=== PATIENT | female | born 1950 | race Caucasian/White ===

== ENCOUNTER → 2016-10-26 | Outpatient (CLI) | payer OTHER ==
[~2016-10-26] MED LIST: HYDR-1231 PO; ONDA-42 SL; PRM25T PO
--- NOTE | 2016-10-28 13:20 | Diagnostic Imaging Report ---
Bilateral screening mammogram 2D views with tomosynthesis The current study was also evaluated with a Computer Aided Detection (CAD) system. INDICATION: Screening. No current complaints stated on the questionnaire. COMPARISON: 10/23/2015. FINDINGS: The breasts are composed of heterogeneously dense parenchyma which may decrease mammographic sensitivity. There is a biopsy clip in the outer aspect of the left breast. There is a 6-mm circumscribed mass in the medial aspect of the right breast minimally larger compared to the prior exams and has been demonstrated to represent a simple cyst based on ultrasound of 10/10/2014. Allowing for technique and positional differences, no suspicious change is seen. IMPRESSION: No significant change. ACR BI-RADS Category 2: Benign findings. Result letter will be mailed to the patient. Note: At least 10% of breast cancer is not imaged by mammography. Dictated on workstation # [id number]
== END ==
LOC: RAD 14:19
PROVIDERS: ATTEND Family Medicine
DX: Z12.31 Encounter for screening mammogram for malignant neoplasm of breast (principal)
CPT/HCPCS: 77067

== ENCOUNTER → 2017-11-06 | Outpatient (CLI) | payer OTHER ==
--- NOTE | 2017-11-06 15:42 | Diagnostic Imaging Report ---
INDICATION: Routine screening. COMPARISON: Comparison is made with prior exams from 10/26/2016 and 10/23/2015. TECHNIQUE: 2D and 3D bilateral screening mammography was performed with computer-aided detection (CAD) system. FINDINGS: Scattered fibroglandular densities are noted bilaterally. Circumscribed density in the inner aspect of the right breast posterior depth appears stable. There are benign calcifications in the right breast. Biopsy clip in the outer portion of the left breast is again noted. No spiculated mass or malignant appearing microcalcifications are seen. The axillae are unremarkable. IMPRESSION: No mammographic features suspicious for malignancy are identified. ACR BI-RADS Category 2: Benign findings. Result letter will be mailed to the patient. Note: At least 10% of breast cancer is not imaged by mammography. Dictated by: Dictated on workstation # [id number]
== END ==
LOC: RAD 14:46
PROVIDERS: ATTEND Nurse Practitioner Family
DX: Z12.31 Encounter for screening mammogram for malignant neoplasm of breast (principal)
CPT/HCPCS: 77067

== ENCOUNTER → 2018-11-08 | Outpatient (CLI) | payer OTHER ==
--- NOTE | 2018-11-09 13:40 | Diagnostic Imaging Report ---
INDICATION: Routine screening. CORRELATION is made with prior mammograms of 11/06/2017 and 10/26/2016. TECHNIQUE: 2-D and 3-D bilateral screening mammography was performed with CAD. FINDINGS: A circumscribed density in the lower inner right breast does appear to be slightly larger on today's exam. Clip in the lateral left breast is again noted. No new mass is seen. There are benign calcifications in both breasts. The axillae are unremarkable. IMPRESSION: BI-RADS category 0. Slight increase in size of a circumscribed nodule in the lower inner right breast at mid depth. Further evaluation with ultrasound is recommended. ACR BI-RADS Category 0: Incomplete. (Needs additional imaging evaluation). Result letter will be mailed to the patient. Note: At least 10% of breast cancer is not imaged by mammography. Dictated by: Dictated on workstation # [id number]
== END ==
LOC: RAD 14:45
PROVIDERS: ATTEND Nurse Practitioner Family
DX: Z12.31 Encounter for screening mammogram for malignant neoplasm of breast (principal)
CPT/HCPCS: 77067

== ENCOUNTER → 2018-11-19 | Outpatient (CLI) | payer OTHER ==
--- NOTE | 2018-11-19 12:29 | Diagnostic Imaging Report ---
INDICATION: Right breast nodule. This study is performed for further evaluation. COMPARISON: Correlation is made with the prior right breast ultrasound from 10/29/2014 as well as a recent screening mammogram from 11/08/2018. TECHNIQUE: Sonographic interrogation of the lower inner right breast was performed. FINDINGS: There is a circumscribed cyst at the 4 o'clock location 4 cm from the nipple. This measures 6 mm x 5 mm x 6 mm compared with 5 mm x 3 mm x 4 mm on the prior exam. This does show a small amount of internal debris. No internal vascularity is present. IMPRESSION: There is a slight increase in the size of a complex cyst at the 4 o'clock location of the right breast when compared to the examination of 4 years earlier. Very little change in a 4 year time interval is reassuring for a benign etiology. The patient may return to routine annual screening mammography. ACR BI-RADS Category 2: Benign findings. Result letter will be mailed to the patient. Note: At least 10% of breast cancer is not imaged by mammography. Dictated by: Dictated on workstation # [id number]
== END ==
LOC: RAD 10:00
PROVIDERS: ATTEND Nurse Practitioner Family
DX: N60.01 Solitary cyst of right breast (principal); N63.10 Unspecified lump in the right breast, unspecified quadrant

== ENCOUNTER → 2019-11-29 | Outpatient (CLI) | payer OTHER ==
--- NOTE | 2019-12-02 09:58 | Diagnostic Imaging Report ---
INDICATION: Routine screening. COMPARISON: 11/08/2018 and 11/06/2017. TECHNIQUE: 2D and 3D bilateral screening mammography was performed with CAD. FINDINGS: Scattered fibroglandular densities are identified bilaterally. Benign calcifications are identified bilaterally. A biopsy clip in the left breast is stable. The circumscribed nodule in the medial right breast on the prior study is no longer visualized. No new mass or malignant appearing microcalcifications are seen. The axillae are unremarkable. IMPRESSION: No mammographic features suspicious for malignancy are identified. ACR BI-RADS Category 2: Benign findings. Result letter will be mailed to the patient. Note: At least 10% of breast cancer is not imaged by mammography. Dictated by: Dictated on workstation # [id number]
== END ==
LOC: RAD 15:45
PROVIDERS: ATTEND Nurse Practitioner Family
DX: Z12.31 Encounter for screening mammogram for malignant neoplasm of breast (principal)
CPT/HCPCS: 77063; 77067

== ENCOUNTER 2020-04-17 08:35 | Outpatient (CLI) | payer OTHER ==
[~2020-04-17] VITALS: Ht 170 cm; Wt 61.0 kg
[2020-04-17 08:38] VITALS: BP 144/70
[2020-04-17] MEDS ORDERED: EPINEPHrine INJECTION 1 MG/ML AMP IM PRN (08:45)
[2020-04-17] MEDS ORDERED: diphenhydrAMINE 50 MG/ML INJ (BENADRYL) IV PRN (08:45)
[2020-04-17] MEDS ORDERED: BAMLANIVIMAB 700 MG in NS 200 ML IV ONE (08:45)
[2020-04-17 09:54] VITALS: BP 144/83
== END 2020-04-17 10:53 ==
LOC: INFUSION 08:35
PROVIDERS: ATTEND Nurse Practitioner Family
DX: U07.1 COVID-19 (principal)

== ENCOUNTER → 2020-11-30 | Outpatient (CLI) | payer OTHER ==
--- NOTE | 2020-11-30 09:05 | Diagnostic Imaging Report ---
INDICATION: Routine screening. COMPARISON: 11/29/2019 and 11/08/2018. TECHNIQUE: 2D and 3D bilateral screening mammography was performed with CAD. FINDINGS: Both breasts are heterogeneously dense, limiting the sensitivity of mammography. A biopsy clip in the outer left breast is again noted. A density in the outer left breast just superior to the biopsy clip on the MLO view does appear to be slightly more prominent on today's study. Additional views are recommended. No new mass is seen. There are no malignant-appearing microcalcifications. The axillae are unremarkable. IMPRESSION: Left breast density appears more prominent. Additional views are recommended for further evaluation. ACR BI-RADS Category 0: Incomplete. (Needs additional imaging evaluation). Result letter will be mailed to the patient. Note: At least 10% of breast cancer is not imaged by mammography. Dictated by: Dictated on workstation # [id number]
== END ==
LOC: RAD 07:30
PROVIDERS: ATTEND Nurse Practitioner Family
DX: Z12.31 Encounter for screening mammogram for malignant neoplasm of breast (principal)
CPT/HCPCS: 77063; 77067

== ENCOUNTER → 2020-12-11 | Outpatient (CLI) | payer OTHER ==
--- NOTE | 2020-12-11 13:49 | Diagnostic Imaging Report ---
INDICATION: Left breast density. CORRELATION is made with diagnostic mammogram earlier the same day and screening mammogram from 11/30/2020. Sonographic interrogation of the outer left breast was performed. There is an irregular hypoechoic nodule at the 2:30 location of the left breast, 7 cm from the nipple measuring 4 mm x 6 mm x 4 mm. There is posterior acoustic shadowing present. No internal vascularity is seen. This likely accounts for the mammographic density. Fatty lymph node in the left axilla is noted. IMPRESSION: BI-RADS Category 4 Irregular subcentimeter hypoechoic nodule at the 2:30 location of the left breast, 7 cm from the nipple. This is concerning for a small breast neoplasm. Tissue sampling is recommended. This would be amenable to ultrasound-guided core biopsy. ACR BI-RADS Category 4: Suspicious abnormality. Result letter will be mailed to the patient. Note: At least 10% of breast cancer is not imaged by mammography. Dictated by: Dictated on workstation # [id number]
--- NOTE | 2020-12-11 13:50 | Diagnostic Imaging Report ---
INDICATION: Left breast density. Patient presents for additional views. CORRELATION is made with screening study from 11/30/2020. Unilateral left 2-D and 3-D diagnostic mammography was performed. This included spot compression exaggerated CC and ML views as well as conventional 90 degrees lateral views and conventional exaggerated CC views. There is a persistent somewhat irregular density in the outer aspect of the left breast approximately 7-8 cm from the nipple. This projects just cephalad and slightly lateral to a biopsy clip. No other masses are seen. IMPRESSION: BI-RADS 0 Irregular density in the outer left breast approximately 7 to 8 cm from the nipple. Further evaluation with ultrasound is recommended and will be performed today. ACR BI-RADS Category 0: Incomplete. (Needs additional imaging evaluation). Result letter will be mailed to the patient. Note: At least 10% of breast cancer is not imaged by mammography. Dictated by: Dictated on workstation # [id number]
== END ==
LOC: RAD 12:45
PROVIDERS: ATTEND Nurse Practitioner Family
DX: N63.21 Unspecified lump in the left breast, upper outer quadrant (principal)
CPT/HCPCS: 76642; 77065; G0279

== ENCOUNTER → 2020-12-23 | Outpatient (CLI) | payer OTHER ==
[~2020-12-23] VITALS: Ht 170.2 cm; Wt 59.5 kg
[~2020-12-23] MED LIST changes: +LIDOCAINE 1% INJ 20 ML 20 ML VIAL INJ ONE
--- NOTE | 2020-12-23 12:48 | Diagnostic Imaging Report ---
INDICATION: Left breast nodule, status post ultrasound-guided biopsy. Unilateral left 2-D CC and ML mammography was performed after patient underwent ultrasound-guided core biopsy. Images demonstrate a marker clip in the upper and outer aspect of the left breast posterior depth at the area of previously noted irregular density. IMPRESSION: Status post biopsy marker clip placement upper outer left breast posterior depth, as described. Dictated by: Dictated on workstation # [id number]
--- NOTE | 2020-12-23 12:57 | Diagnostic Imaging Report ---
Indication: Left breast nodule. Patient presents for ultrasound-guided biopsy. Patient brought to the ultrasound suite placed on table in the supine position. Ultrasound imaging of the left breast was performed to evaluate appropriate entry site. Left breast was then prepped and draped in usual sterile fashion. Small amount 1% lidocaine was utilized for local anesthesia. The 13-gauge hand-held vacuum-assisted mammotome device was inserted place with its biopsy chamber just deep to the irregular hypoechoic nodule at the 2:30 location of the left breast, 7 cm from the nipple. A total of 4 core biopsies were obtained. A marker clip was then deployed. Hemostasis was obtained using manual compression. Patient tolerated procedure well and was sent for post procedure mammogram satisfactory condition. IMPRESSION: Successful ultrasound-guided core biopsy of the irregular nodule at the 2:30 location of the left breast, 7 cm from the nipple utilizing the 13-gauge hand-held vacuum-assisted mammotome device. Pathology results are currently pending. Dictated by: Dictated on workstation # [id number]
== END ==
LOC: RAD 11:00
PROVIDERS: ATTEND Family Medicine
DX: N63.21 Unspecified lump in the left breast, upper outer quadrant (principal)
CPT/HCPCS: 19083; 77065; A4648; G0279

== ENCOUNTER 2021-04-06 13:50 | Outpatient (RCR) | payer OTHER, MEDICARE ==
[2021-02-09 09:29] LABS: BASOPHILS % (AUTO) 1 % (0-10); EOSINOPHILS # (AUTO) 0.1 10^3/uL (0.0-0.3); EOSINOPHILS % (AUTO) 1 % (0-10); HEMATOCRIT 41 % (35-52); HEMOGLOBIN 13.8 g/dL (11.5-16.0); LYMPHOCYTES # (AUTO) 1.8 10^3/uL (1.0-4.0); LYMPHOCYTES % (AUTO) 37 % (12-44); MEAN CORPUSCULAR HEMOGLOBIN 33 pg (25-34); MEAN CORPUSCULAR HGB CONC 34 g/dL (32-36); MEAN CORPUSCULAR VOLUME 96 fL (80-99); MEAN PLATELET VOLUME 9.8 fL (9.0-12.2); MONOCYTES # (AUTO) 0.4 10^3/uL (0.0-1.0); MONOCYTES % (AUTO) 8 % (0-12); NEUTROPHILS # (AUTO) 2.6 10^3/uL (1.8-7.8); NEUTROPHILS % (AUTO) 53 % (42-75); PLATELET COUNT 277 10^3/uL (130-400)
[2021-02-09 09:55] LABS: ALBUMIN 3.9 GM/DL (3.2-4.5); BILIRUBIN,TOTAL 0.7 MG/DL (0.1-1.0); CALCIUM 9.5 MG/DL (8.5-10.1); CREATININE SERUM 0.7 MG/DL (0.60-1.30); POTASSIUM 4.1 MMOL/L (3.6-5.0); TOTAL PROTEIN 6.4 GM/DL (6.4-8.2)
[2021-03-19 12:49] LABS: BASOPHILS % (AUTO) 1 % (0-10); EOSINOPHILS # (AUTO) 0.1 10^3/uL (0.0-0.3); EOSINOPHILS % (AUTO) 2 % (0-10); HEMATOCRIT 41 % (35-52); HEMOGLOBIN 13.2 g/dL (11.5-16.0); LYMPHOCYTES # (AUTO) 1.7 10^3/uL (1.0-4.0); LYMPHOCYTES % (AUTO) 26 % (12-44); MEAN CORPUSCULAR HEMOGLOBIN 32 pg (25-34); MEAN CORPUSCULAR HGB CONC 33 g/dL (32-36); MEAN CORPUSCULAR VOLUME 98 fL (80-99); MEAN PLATELET VOLUME 9.8 fL (9.0-12.2); MONOCYTES # (AUTO) 0.5 10^3/uL (0.0-1.0); MONOCYTES % (AUTO) 8 % (0-12); NEUTROPHILS # (AUTO) 4.2 10^3/uL (1.8-7.8); NEUTROPHILS % (AUTO) 64 % (42-75); PLATELET COUNT 294 10^3/uL (130-400); WHITE BLOOD COUNT 6.6 10^3/uL (4.3-11.0)
[2021-03-19 13:09] LABS: ALBUMIN 3.8 GM/DL (3.2-4.5); BILIRUBIN,TOTAL 0.3 MG/DL (0.1-1.0); CALCIUM 9.6 MG/DL (8.5-10.1); CREATININE SERUM 0.73 MG/DL (0.60-1.30); POTASSIUM 4.2 MMOL/L (3.6-5.0); TOTAL PROTEIN 6.4 GM/DL (6.4-8.2)
== END 2021-04-09 | disposition home or self-care (01) ==
LOC: ONC 13:50
PROVIDERS: ATTEND Internal Medicine Hematology & Oncology
DX: Z51.0 Encounter for antineoplastic radiation therapy (principal); C50.412 Malignant neoplasm of upper-outer quadrant of left female breast; R74.01 Elevation of levels of liver transaminase levels; Z90.12 Acquired absence of left breast and nipple
CPT/HCPCS: 80053; 85025; G0463; 77280; 77290; 77295; 77300; 77307; 77334; 77336; 77417; 99204; 99213; 99214

== ENCOUNTER → 2021-04-06 | Outpatient (CLI) | payer OTHER, MEDICARE ==
[~2021-04-06] MED LIST changes: -LIDOCAINE 1% INJ 20 ML 20 ML VIAL INJ ONE
--- NOTE | 2021-04-06 10:04 | Diagnostic Imaging Report ---
INDICATION: Breast cancer. COMPARISON: 04/17/2001. FINDINGS: AP Spine L1-L4: [BMD (g/cm2): 1.223] [T-Score: 0.2] [Z-Score: 2.1] [BMD Previous: 1.271] [BMD % Change: -3.8] LT Hip Neck: [BMD (g/cm2): 0.816] [T-Score: -1.6] [Z-Score: 0.3] LT Hip Total: [BMD (g/cm2):0.909] [T-Score:-0.8] [Z-Score: 0.9] [BMD Previous: 1.016] [BMD % Change: -10.5] RT Hip Neck: [BMD (g/cm2):0.880] [T-Score:-1.1] [Z-Score:0.8] RT Hip Total: [BMD (g/cm2):0.946] [T-score:-0.5] [Z-Score:1.2] [BMD Previous:1.032] [BMD % Change:-8.3] World Health Organization criteria for BMD interpretation classify patients as Normal (T-score at or above -1.0), Osteopenic (T-score between -1.0 and -2.5) or Osteoporotic (T-score at or below -2.5). LIMITATIONS AND MODIFICATION: None. FRACTURE RISK (FRAX SCORE): The ten year probability of (%): Major Osteoporotic Fracture: [NA] Hip Fracture: [NA] IMPRESSION: 1. Osteopenia (Low bone mass). 2. Bone mineral density has decreased as detailed above. 3. See below National Osteoporosis Foundation guidelines on when to potentially initiate pharmacologic therapy. Based on the National Osteoporosis Foundation Guidelines, pharmacologic treatment should be initiated in any of the following, unless clinical conditions suggest otherwise: * Any patient with prior fragility fracture of the hip or vertebrae. A spine fracture indicates 5X risk for subsequent spine fracture and 2X risk for subsequent hip fracture. * Osteoporosis (T-score <-2.5). * Postmenopausal women and men age 50 and older with low bone mass/osteopenia (T-score between -1.0 and -2.5) by DXA and 10-year major osteoporotic fracture greater than 20% or a 10-year probability of hip fracture greater than 3%. These fracture risks are supplied above in the FRAX score, if applicable. * Clinician judgement and/or patient preferences may indicate treatment for people with 10-year fracture probabilities above or below these levels. Dictated by: Dictated on workstation # [id number]
== END ==
LOC: RAD 08:30
PROVIDERS: ATTEND Nurse Practitioner Adult Health
DX: C50.912 Malignant neoplasm of unspecified site of left female breast (principal); M85.80 Other specified disorders of bone density and structure, unspecified site
CPT/HCPCS: 77080

== ENCOUNTER → 2021-05-17 | Outpatient (CLI) | payer OTHER, MEDICARE | LOC: EDSTATUS 04-10 08:49 → ONC 08:50 | PROVIDERS: ATTEND Internal Medicine Hematology & Oncology | DX: C50.412 Malignant neoplasm of upper-outer quadrant of left female breast (principal); Z78.0 Asymptomatic menopausal state ==

== ENCOUNTER 2021-07-28 14:21 | Emergency (ER) | payer OTHER, MEDICARE ==
[~2021-07-28] VITALS: Ht 170 cm; Wt 60.0 kg
[2021-07-28 14:40] LABS: BASOPHILS % (AUTO) 0 % (0-10); EOSINOPHILS % (AUTO) 0 % (0-10); HEMATOCRIT 40 % (35-52); HEMOGLOBIN 13.3 g/dL (11.5-16.0); LYMPHOCYTES % (AUTO) 9 % (12-44); MEAN CORPUSCULAR HEMOGLOBIN 32 pg (25-34); MEAN CORPUSCULAR HGB CONC 33 g/dL (32-36); MEAN CORPUSCULAR VOLUME 97 fL (80-99); MEAN PLATELET VOLUME 9.9 fL (9.0-12.2); MONOCYTES # (AUTO) 0.6 10^3/uL (0.0-1.0); MONOCYTES % (AUTO) 6 % (0-12); NEUTROPHILS % (AUTO) 84 % (42-75); PLATELET COUNT 273 10^3/uL (130-400); WHITE BLOOD COUNT 10.6 10^3/uL (4.3-11.0)
--- NOTE | 2021-07-28 14:40 | ED Fall/Injury ---
General Chief Complaint: Trauma-Non Activation Stated Complaint: HIT HEAD,NECK PAIN, FELL OFF HORSE Source: patient Exam Limitations: no limitations History of Present Illness Date Seen by Provider: Jul 28, 2021 Time Seen by Provider: 14:36 Initial Comments to ER with complaints of headache, left-sided neck pain, nausea without vomiti ng. This occurred about 3 hours ago when she fell off of her horse. She denies loss of consciousness. Denies pain in her extremities or low back. Pain is worsened in the left side of her neck with any movement of the neck. She denies any numbness tingling or weakness in any of her extremities. She was able to drive herself here and ambulatory into room to without assistance. She does not take any anticoagulant or antiplatelet medications. She rates the pain in the left side of the neck and head at 8 out of 10. She does take vitamin D supplement Occurred: this morning Severity: moderate, severe Injuries/Pain Location: head, neck Context: other (Fell off horse) Loss of Consciousness: no loss of consciousness Associated Symptoms (Fall): Headache, Nausea/Vomiting, Neck Pain Allergies and Home Medications Allergies Coded Allergies: No Known Drug Allergies (Unverified , 08/24/12) Patient Home Medication List Home Medication List Reviewed: Yes Hydrocodone Bit/Acetaminophen (Hydrocodone-Apap 5-325 Tablet) 1 Tab Tablet, 1-2 TAB PO Q4H PRN for PAIN Prescribed by: VERNA LLAMAS on 06/02/131904 Ondansetron Hcl (Zofran Oral Dissolve) 4 Mg Tab, 8 MG SL Q6H PRN for NAUSEA/VOMITING Prescribed by: VERNA LLAMAS on 06/02/131905 Promethazine Hcl (Phenergan Tab) 25 Mg Tab, 0.5-1 TAB PO QID PRN for NAUSEA/VOMITING Prescribed by: VERNA LLAMAS on 06/02/131905 Review of Systems Review of Systems Constitutional: see HPI Eyes: No Symptoms Reported Ears, Nose, Mouth, Throat: no symptoms reported Respiratory: no symptoms reported Cardiovascular: no symptoms reported Genitourinary: no symptoms reported Musculoskeletal: no symptoms reported Skin: no symptoms reported Psychiatric/Neurological: No Symptoms Reported Physical Exam Vital Signs Vital Signs - First Documented 07/28/21 14:26 Temp 35.6 Pulse 63 Resp 16 B/P (MAP) 150/85 (106) Capillary Refill : Height, Weight, BMI Height: 5'7" Weight: 136lbs. oz. 61.309870lw; 20.53 BMI Method: General Appearance: WD/WN, no apparent distress, other (GCS 15 alert and oriented very pleasant no distress ambulatory to room to without assistance. A rigid cervical collar was applied upon arrival. Left side of her neck is tender to palpation without deformity or swelling. There is no mar sign or hemotympanum. There is no scalp laceration or abrasion.) HEENT: PERRL/EOMI, normal ENT inspection, TMs normal Neck: limited range of motion, tender lateral, tender midline Cardiovascular: regular rate, rhythm, no murmur Respiratory: no respiratory distress, no accessory muscle use Gastrointestinal: normal bowel sounds, non tender, soft Extremities: normal range of motion, non-tender Neurologic/Psychiatric: alert, normal mood/affect, oriented x 3 Skin: normal color, warm/dry Progress/Results/Core Measures Results/Orders Lab Results Laboratory Tests Test 07/28/21 14:30 Range/Units White Blood Count 10.6 4.3-11.0 10^3/uL Red Blood Count 4.13 3.80-5.11 10^6/uL Hemoglobin 13.3 11.5-16.0 g/dL Hematocrit 40 35-52 % Mean Corpuscular Volume 97 80-99 fL Mean Corpuscular Hemoglobin 32 25-34 pg Mean Corpuscular Hemoglobin Concent 33 32-36 g/dL Red Cell Distribution Width 12.4 10.0-14.5 % Platelet Count 273 130-400 10^3/uL Mean Platelet Volume 9.9 9.0-12.2 fL Immature Granulocyte % (Auto) 1 % Neutrophils (%) (Auto) 84 H 42-75 % Lymphocytes (%) (Auto) 9 L 12-44 % Monocytes (%) (Auto) 6 0-12 % Eosinophils (%) (Auto) 0 0-10 % Basophils (%) (Auto) 0 0-10 % Neutrophils # (Auto) 9.0 H 1.8-7.8 10^3/uL Lymphocytes # (Auto) 1.0 1.0-4.0 10^3/uL Monocytes # (Auto) 0.6 0.0-1.0 10^3/uL Eosinophils # (Auto) 0.0 0.0-0.3 10^3/uL Basophils # (Auto) 0.0 0.0-0.1 10^3/uL Immature Granulocyte # (Auto) 0.1 0.0-0.1 10^3/uL Prothrombin Time 12.9 12.2-14.7 SEC INR Comment 0.9 0.8-1.4 Activated Partial Thromboplast Time 25 24-35 SEC Sodium Level 137 135-145 MMOL/L Potassium Level 3.8 3.6-5.0 MMOL/L Chloride Level 103 98-107 MMOL/L Carbon Dioxide Level 19 L 21-32 MMOL/L Anion Gap 15 H 5-14 MMOL/L Blood Urea Nitrogen 20 H 7-18 MG/DL Creatinine 0.82 0.60-1.30 MG/DL Estimat Glomerular Filtration Rate 76 BUN/Creatinine Ratio 24 Glucose Level 117 H 70-105 MG/DL Calcium Level 9.9 8.5-10.1 MG/DL Corrected Calcium 9.8 8.5-10.1 MG/DL Total Bilirubin 0.6 0.1-1.0 MG/DL Aspartate Amino Transf (AST/SGOT) 25 5-34 U/L Alanine Aminotransferase (ALT/SGPT) 28 0-55 U/L Alkaline Phosphatase 45 40-136 U/L Total Protein 6.4 6.4-8.2 GM/DL Albumin 4.1 3.2-4.5 GM/DL My Orders Orders - ELIANA BALDERRAMA APRN Ct Head/Cervical Spine Wo (07/28/21 14:32) Ct Thoracic Spine Wo (07/28/21 14:32) Chest 1 View, Ap/Pa Only (07/28/21 14:32) Cbc With Automated Diff (07/28/21 14:32) Comprehensive Metabolic Panel (07/28/21 14:32) Protime With Inr (07/28/21 14:32) Partial Thromboplastin Time (07/28/21 14:32) Fentanyl Inj (Sublimaze Injection) (07/28/21 14:45) Ondansetron Injection (Zofran Injectio (07/28/21 14:45) Fentanyl Inj (Sublimaze Injection) (07/28/21 15:30) Ct Angio Head/Neck (07/28/21 15:29) Iohexol Injection (Omnipaque 350 Mg/Ml 1 (07/28/21 16:00) Received Contrast (Hold Metformin- Contr (07/28/21 16:00) Ns (Ivpb) (Sodium Chloride 0.9% Ivpb Bag (07/28/21 16:00) Ns Iv 1000 Ml (Sodium Chloride 0.9%) (07/28/21 16:15) Promethazine Injection (Phenergan Injec (07/28/21 16:15) Fentanyl Inj (Sublimaze Injection) (07/28/21 16:30) Fentanyl Inj (Sublimaze Injection) (07/28/21 17:30) Medications Given in ED Current Medications Medications Dose Ordered Sig/Sarai Route Start Time Stop Time Status Last Admin Dose Admin Fentanyl Citrate 50 mcg ONCE ONCE IVP 07/28/21 14:45 07/28/21 14:46 DC 07/28/21 14:55 50 MCG Fentanyl Citrate 50 mcg ONCE ONCE IVP 07/28/21 15:30 07/28/21 15:31 DC 07/28/21 15:31 50 MCG Fentanyl Citrate 50 mcg ONCE ONCE IVP 07/28/21 16:30 07/28/21 16:31 DC 07/28/21 16:25 50 MCG Iohexol 100 ml ONCE ONCE IV 07/28/21 16:00 07/28/21 16:01 DC 07/28/21 16:06 75 ML Ondansetron HCl 8 mg ONCE ONCE IVP 07/28/21 14:45 07/28/21 14:46 DC 07/28/21 14:55 8 MG Promethazine HCl 12.5 mg ONCE ONCE IVP 07/28/21 16:15 07/28/21 16:16 DC 07/28/21 16:12 12.5 MG Sodium Chloride 100 ml ONCE ONCE IV 07/28/21 16:00 07/28/21 16:01 DC 07/28/21 16:06 80 ML Vital Signs/I&O 07/28/21 14:26 Temp 35.6 Pulse 63 Resp 16 B/P (MAP) 150/85 (106) Departure Communication (Admissions) NAME: ONIEL BARRERA [facility] REC#: [id number] PT STATUS: REG ER : 1950 PHYSICIAN: ELIANA BALDERRAMA [employer] ADMIT DATE: 07/28/21/ER Draft Date of Exam:07/28/21 CT THORACIC SPINE WO PROCEDURE: CT thoracic spine without contrast. TECHNIQUE: Multiple axial computerized tomography images were obtained from the base of the thoracic spine to the vertex without intravenous contrast. Auto Exposure Controls were utilized during the CT exam to meet ALARA standards for radiation dose reduction. INDICATION: Fell off of a horse. FINDINGS: Curvature and alignment of the thoracic spine is normal. There appears to be an old left first rib fracture. Vertebral body heights are maintained. No acute compression fracture is seen. There is generalized thoracic spondylosis with variable disc space narrowing and marginal spurring. Paraspinous tissues are unremarkable. IMPRESSION: Thoracic spondylosis. No acute bony abnormality is detected. Dictated on workstation # [id number] Dict: 07/28/21 1511 Trans: 07/28/21 1524 [id number] Interpreted by: ARTIE GARCIA MD Electronically signed by: NAME: ONIEL BARRERA [facility] REC#: [id number] PT STATUS: REG ER : 1950 PHYSICIAN: ELIANA BALDERRAMA APRN ADMIT DATE: 07/28/21/ER Draft Date of Exam:07/28/21 CT HEAD/CERVICAL SPINE WO PROCEDURE: CT head and CT cervical spine without contrast. TECHNIQUE: Multiple contiguous axial images were obtained through the brain and cervical spine without the use of intravenous contrast. Sagittal and coronal reformations through the cervical spine were then performed. Auto Exposure Controls were utilized during the CT exam to meet ALARA standards for radiation dose reduction. INDICATION: Fall from horse, pain. COMPARISON: None available. FINDINGS: Mild atrophy. No intracranial hemorrhage. No intracranial mass, mass effect, midline shift, herniation, hydrocephalus, or extra-axial fluid collection. Minimal periventricular and subcortical white matter hypodensities are present though nonspecific. This most likely relates to minimal background chronic small vessel white matter ischemic disease. No definite CT evidence of an acute ischemic infarction. The left ocular lens is absent. The orbits are otherwise unremarkable. The paranasal sinuses are clear. The calvarium is intact. Alignment of the cervical spine is well maintained without significant anterolisthesis or retrolisthesis. 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 This is resulting in the left lateral mass being laterally displaced. Besides mild scattered endplate degenerative changes, vertebral body heights are well-maintained. Chronic appearing left 1st rib fracture. No additional acute fracture or dislocation. Moderate disc space height loss at C6/C7 with mild disc space height loss at C5/C6. Multilevel facet joint degenerative changes and uncovertebral joint hypertrophy. Prominent facet joint degenerative changes are identified on the left. Mild central canal stenosis at C6/C7 and C5/C6 with multilevel neuroforaminal stenosis present including severe bilateral neuroforaminal stenosis at C5/C6. No apical pneumothorax. IMPRESSION: Acute fracturing of the left aspect of the anterior arch of C1 with resulting lateral displacement of the lateral mass, acute Deven's fracture. Given location of fracture, CTA of the neck is recommended to help evaluate the vertebral vasculature. No acute intracranial abnormality with mild atrophy and minimal background chronic small vessel white matter ischemic disease. Moderate multilevel degenerative changes with resulting significant central canal and neuroforaminal stenosis. Findings were discussed with Eliana Balderrama at 1508 hours on 07/28/2021. CRITICAL FINDING Dictated on workstation # [id number] Dict: 07/28/21 1457 Trans: 07/28/21 1526 [id number] Interpreted by: KANDICE CLARK MD Electronically signed by: [id number] spoke with Dr. Rouse from neurosurgery at [facility]. He will review the images and call me back. 1550-Dr. Rouse has called back, concerned about a transverse ligament injury. He would like to have her transferred to [facility]. I then spoke with [facility] who has accepted the patient for transfer, trauma surgeon Dr. Joy. CT angio head and neck pending to evaluate the vertebral arteries. At this time her pain is controlled her blood pressure is 150/74, heart rate is in the 80s she is alert and oriented GCS 15 still without weakness or paresthesia in her extremities. She remains in a rigid cervical collar. 1607-back from CT angio. Awaiting bed assignment from [facility]. Reports increasing nausea. 1 L of normal saline and 12 and 5 mg of Phenergan IV to be infused. Impression Primary Impression: Deven fracture Disposition: 02 XFER SHT-TRM HOSP Condition: Stable Transfer Transfer Reason: Exceeds level of care Time Spoke to Accepting Phy: 15:52 Departure-Patient Inst. Referrals: KAYLI MUNGUIA MD (PCP/Family) Primary Care Physician Copy Copies To 1: KAYLI MUNGUIA MD, PETER J [employer] Jul 28, 2021 14:40
[2021-07-28] MEDS ORDERED: ONDANSETRON 4 MG/2 ML (SDV) Z0FRAN IVP ONE (14:45)
[2021-07-28] MEDS ORDERED: fentaNYL INJ 100 MCG/2 ML AMP IVP ONE ×4 (14:45→17:30)
[2021-07-28 14:51] LABS: ALBUMIN 4.1 GM/DL (3.2-4.5); INR 0.9 (0.8-1.4); POTASSIUM 3.8 MMOL/L (3.6-5.0); PROTHROMBIN TIME PATIENT 12.9 SEC (12.2-14.7)
[2021-07-28 14:52] LABS: CALCIUM 9.9 MG/DL (8.5-10.1)
[2021-07-28 14:53] LABS: TOTAL PROTEIN 6.4 GM/DL (6.4-8.2)
[2021-07-28 14:55] LABS: BILIRUBIN,TOTAL 0.6 MG/DL (0.1-1.0)
[2021-07-28 14:57] LABS: CREATININE SERUM 0.82 MG/DL (0.60-1.30)
--- NOTE | 2021-07-28 15:22 | Diagnostic Imaging Report ---
INDICATION: Fall from horse. COMPARISON: None available. TECHNIQUE: Single frontal radiograph of the chest dated July 28, 2021. FINDINGS: The cardiac silhouette is mildly enlarged. No significant pulmonary vascular congestion. Surgical clips are seen overlying the left axillary region. Senescent changes of the lungs without focal pulmonary opacity. No significant pleural effusion. No pneumothorax. No acute osseous abnormality. IMPRESSION: Senescent changes of the lungs without acute cardiopulmonary abnormality. Dictated by: Dictated on workstation # [id number]
--- NOTE | 2021-07-28 15:25 | Diagnostic Imaging Report ---
PROCEDURE: CT thoracic spine without contrast. TECHNIQUE: Multiple axial computerized tomography images were obtained from the base of the thoracic spine to the vertex without intravenous contrast. Auto Exposure Controls were utilized during the CT exam to meet ALARA standards for radiation dose reduction. INDICATION: Fell off of a horse. FINDINGS: Curvature and alignment of the thoracic spine is normal. There appears to be an old left first rib fracture. Vertebral body heights are maintained. No acute compression fracture is seen. There is generalized thoracic spondylosis with variable disc space narrowing and marginal spurring. Paraspinous tissues are unremarkable. IMPRESSION: Thoracic spondylosis. No acute bony abnormality is detected. Dictated by: Dictated on workstation # [id number]
--- NOTE | 2021-07-28 15:26 | Diagnostic Imaging Report ---
PROCEDURE: CT head and CT cervical spine without contrast. TECHNIQUE: Multiple contiguous axial images were obtained through the brain and cervical spine without the use of intravenous contrast. Sagittal and coronal reformations through the cervical spine were then performed. Auto Exposure Controls were utilized during the CT exam to meet ALARA standards for radiation dose reduction. INDICATION: Fall from horse, pain. COMPARISON: None available. FINDINGS: Mild atrophy. No intracranial hemorrhage. No intracranial mass, mass effect, midline shift, herniation, hydrocephalus, or extra-axial fluid collection. Minimal periventricular and subcortical white matter hypodensities are present though nonspecific. This most likely relates to minimal background chronic small vessel white matter ischemic disease. No definite CT evidence of an acute ischemic infarction. The left ocular lens is absent. The orbits are otherwise unremarkable. The paranasal sinuses are clear. The calvarium is intact. Alignment of the cervical spine is well maintained without significant anterolisthesis or retrolisthesis. 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 This is resulting in the left lateral mass being laterally displaced. Besides mild scattered endplate degenerative changes, vertebral body heights are well-maintained. Chronic appearing left 1st rib fracture. No additional acute fracture or dislocation. Moderate disc space height loss at C6/C7 with mild disc space height loss at C5/C6. Multilevel facet joint degenerative changes and uncovertebral joint hypertrophy. Prominent facet joint degenerative changes are identified on the left. Mild central canal stenosis at C6/C7 and C5/C6 with multilevel neuroforaminal stenosis present including severe bilateral neuroforaminal stenosis at C5/C6. No apical pneumothorax. IMPRESSION: Acute fracturing of the left aspect of the anterior arch of C1 with resulting lateral displacement of the lateral mass, acute Deven's fracture. Given location of fracture, CTA of the neck is recommended to help evaluate the vertebral vasculature. No acute intracranial abnormality with mild atrophy and minimal background chronic small vessel white matter ischemic disease. Moderate multilevel degenerative changes with resulting significant central canal and neuroforaminal stenosis. Findings were discussed with Shiv Balderrama at 1508 hours on 07/28/2021. CRITICAL FINDING Dictated by: Dictated on workstation # [id number]
[2021-07-28] MEDS ORDERED: NS 100 ML (IVPB) BAG IV ONE (16:00)
[2021-07-28] MEDS ORDERED: IOHEXOL 350 MG/ML 100 ML (OMNIPAQUE 350) VIAL IV ONE (16:00)
[2021-07-28] MEDS ORDERED: HOLD METFORMIN - RECEIVED CONTRAST 20 ML VIAL IV SCH (16:00)
[2021-07-28] MEDS ORDERED: PROMETHAZINE INJ 25 MG/ML (PHENERGAN) AMP IVP ONE (16:15)
[2021-07-28] MEDS ORDERED: NS IV 1000 ML 1,000 ML IV SCH (16:15)
--- NOTE | 2021-07-28 16:41 | Diagnostic Imaging Report ---
Clinical Indication: Patient with left neck closed fractures. Exams: 1: Head CT with IV contrast. Auto Exposure Controls were utilized during the CT exam to meet ALARA standards for radiation dose reduction. 2: CT angiogram of the head and neck performed with 100 cc of Omnipaque 350 IV contrast. Sagittal and coronal MIP reformations were created for better visualization of vascular anatomy. Comparison: None. Findings: Head CT: There is no evidence of acute cerebral infarct, intracranial hemorrhage, or gross mass effect. There is no abnormal IV contrast enhancement. The brain parenchymal volume appears appropriate for patient's age. Subtle patchy low-density involving the white matter of both cerebral hemispheres, likely related to mild chronic small vessel ischemic disease. There is normal nixon-white matter distinction. There is no significant midline shift or herniation. There is no evidence of hydrocephalus. The basal cisterns are unremarkable. The skull, extracranial soft tissue, and orbits are unremarkable. The paranasal sinuses are unremarkable. Temporal bones show no significant abnormality. CT angiogram: There is dense contrast bolus within the right subclavian artery and superior vena cava which causes streak artifact obscuring some portions of the aortic arch and proximal great vessels. Three-vessel aortic arch is seen. Bilateral subclavian artery and brachiocephalic arteries are patent. There is dental streak artifact obscuring the neck and vascular structures at the C3 level. The bilateral common carotid arteries, bilateral cervical ICA, and bilateral ECA are unremarkable. The petrous, cavernous and supraclinoid ICA are unremarkable. The bilateral ACAs and distal branches are patent. The bilateral MCAs and distal branches are patent. The bilateral cervical vertebral arteries are patent. The left PICA and right AICA are patent. The intradural bilateral vertebral arteries, basilar artery, bilateral superior cerebellar arteries, bilateral [employer] and distal branches are patent. Dural venous sinuses are patent. Again seen is a fracture involving the left anterior arch of the C1 vertebra which does not extend through the foramen transversalis. Stable widening of the fracture of roughly 3 mm. 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 Cervical spine vertebral body spurs and facet arthropathy are seen. There is no significant neck soft tissue abnormality. IMPRESSION: 1: Again seen is a slightly distracted fracture of the left anterior arch of the C1 vertebra. 2: CT angiogram of the [place] and neck shows no significant stenosis, vascular malformation, aneurysm, or dissection. There is no evidence of vascular injury. 3: Head CT is unremarkable for patient's age. Dictated by: Dictated on workstation # [id number]
[2021-07-28 17:25] VITALS: BP 146/60
== END 2021-07-28 17:27 | disposition short-term general hospital (02) ==
LOC: EDUNIT# 14:21 → ER 14:23
DX: S12.090A Other displaced fracture of first cervical vertebra, initial encounter for closed fracture (principal); V80.010A Animal-rider injured by fall from or being thrown from horse in noncollision accident, initial encounter
CPT/HCPCS: 36415; 70450; 70496; 70498; 71045; 72125; 72128; 80053; 85025; 85610; 85730; 99291

== ENCOUNTER → 2021-09-09 | Outpatient (CLI) | payer OTHER, MEDICARE ==
--- NOTE | 2021-09-09 13:41 | Diagnostic Imaging Report ---
Indication: Left breast carcinoma. Study is performed for follow-up. Unilateral left 2-D and 3-D diagnostic mammography was performed. Correlation is made with prior mammograms from 11/30/2020, 11/29/2019 and 11/08/2018. Post lumpectomy changes in the outer left breast are noted. No residual or recurrent mass is identified. No malignant-appearing microcalcifications are seen. Left axilla contains multiple surgical clips. IMPRESSION: BI-RADS Category 2 Postlumpectomy changes left breast without evidence of residual or recurrent neoplasm. Continued follow-up is recommended. ACR BI-RADS Category 2: Benign findings. Result letter will be mailed to the patient. Note: At least 10% of breast cancer is not imaged by mammography. Dictated by: Dictated on workstation # [id number]
== END ==
LOC: RAD 13:15
PROVIDERS: ATTEND Internal Medicine Hematology & Oncology
DX: C50.912 Malignant neoplasm of unspecified site of left female breast (principal); M85.80 Other specified disorders of bone density and structure, unspecified site; Z79.811 Long term (current) use of aromatase inhibitors; Z90.12 Acquired absence of left breast and nipple
CPT/HCPCS: 77065; G0279

== ENCOUNTER → 2021-09-14 | Outpatient (CLI) | payer OTHER, MEDICARE ==
--- NOTE | 2021-09-14 15:29 | Diagnostic Imaging Report ---
PROCEDURE: CT cervical spine without contrast. TECHNIQUE: Multiple contiguous axial images were obtained through the cervical spine without the use of intravenous contrast. Sagittal and coronal reformations were then performed. Auto Exposure Controls were utilized during the CT exam to meet ALARA standards for radiation dose reduction. INDICATION: Closed Deven fracture. COMPARISON: CTA head and neck 07/28/2021. FINDINGS: Again seen is the distracted fracture of the left anterior arch of C1 with approximately 6 mm of distraction. No bony bridging is yet seen. 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 No new cervical spine fractures are identified. Normal alignment of the remaining cervical spine. Vertebral body heights are preserved. Moderate degenerative endplate changes at C5-C7. No high-grade spinal canal stenosis is evident by noncontrast CT. Uncovertebral joint hypertrophy and facet arthropathy result in moderate to severe bilateral neural foraminal narrowing at C5-C6 and C6-C7. No acute findings in the visualized paravertebral soft tissues. The lung apices are clear. IMPRESSION: 1. Stable appearing distracted fracture of the left anterior arch of C1 of approximately 6 mm. No bony bridging is yet identified. 2. Spondylotic changes result in high-grade bilateral neural foraminal narrowing at C5-C6 and C6-C7. Report faxed to [phone] at 3:28 PM 09/14/2021/cb Dictated by: Dictated on workstation # [id number]
== END ==
LOC: RAD 13:11
PROVIDERS: ATTEND Neurological Surgery
DX: S12.01XD Stable burst fracture of first cervical vertebra, subsequent encounter for fracture with routine healing (principal); M47.812 Spondylosis without myelopathy or radiculopathy, cervical region; M48.02 Spinal stenosis, cervical region
CPT/HCPCS: 72125

== ENCOUNTER → 2021-10-27 | Outpatient (CLI) | payer OTHER, MEDICARE ==
--- NOTE | 2021-10-27 14:54 | Diagnostic Imaging Report ---
PROCEDURE: CT cervical spine without contrast. TECHNIQUE: Multiple contiguous axial images were obtained through the cervical spine without the use of intravenous contrast. Sagittal and coronal reformations were then performed. Auto Exposure Controls were utilized during the CT exam to meet ALARA standards for radiation dose reduction. INDICATION: Followup C1 fracture. Fall off a horse in June 2021. COMPARISON: 09/14/2021. FINDINGS: Chronic fracture involving the anterior arch of C1 on the left is again visualized with approximately 0.3 cm of distraction, previously measuring 0.6 cm. No osseous bridging is seen across this fracture. There is congenital nonunion of the posterior arch of C1. No evidence of acute fracture in the cervical spine. The craniocervical junction demonstrates normal alignment. No malalignment is seen in the cervical spine. No evidence of acute spinal canal stenosis. No high density material is seen within the spinal canal. The soft tissues of the neck are unremarkable. The included lung apices are clear. IMPRESSION: 1. Decreased distraction of the fracture involving the anterior arch of C1 on the left. However, no osseus bridging is seen across the fracture. Recommend continued followup as indicated. 2. No acute fracture is seen in the cervical spine. No evidence of malalignment. Dictated by: Dictated on workstation # [id number]
== END ==
LOC: RAD 12:15
PROVIDERS: ATTEND Neurological Surgery
DX: S12.01XD Stable burst fracture of first cervical vertebra, subsequent encounter for fracture with routine healing (principal)
CPT/HCPCS: 72125

== ENCOUNTER → 2022-03-18 | Outpatient (CLI) | payer OTHER, MEDICARE ==
--- NOTE | 2022-03-18 13:35 | Diagnostic Imaging Report ---
Indication: Left breast carcinoma. Patient presents for a six-month follow-up. Correlation is made with prior mammogram from 09/09/2021. 2-D and 3-D bilateral diagnostic mammography was performed with CAD. Post-therapeutic changes upper outer left breast remain stable. No new mass is detected. No malignant-appearing microcalcifications are seen. There are benign calcifications present. There are surgical clips left axilla. IMPRESSION: BI-RADS Category 2 Stable bilateral mammograms with no mammographic features suspicious for malignancy. ACR BI-RADS Category 2: Benign findings. Result letter will be mailed to the patient. Note: At least 10% of breast cancer is not imaged by mammography. Dictated by: Dictated on workstation # [id number]
== END ==
LOC: RAD 12:18
PROVIDERS: ATTEND Nurse Practitioner
DX: M85.80 Other specified disorders of bone density and structure, unspecified site (principal); Z79.811 Long term (current) use of aromatase inhibitors; Z85.3 Personal history of malignant neoplasm of breast
CPT/HCPCS: 77066; G0279; 77062

== ENCOUNTER 2023-01-06 09:20 | Day surgery (SDC) | payer MEDICARE, OTHER ==
--- NOTE | 2022-12-27 09:56 | HISTORY AND PHYSICAL ---
DATE OF SERVICE: 01/06/2023 COLONOSCOPY HISTORY AND PHYSICAL HISTORY OF PRESENT ILLNESS: The patient is a 72-year-old white female referred by Dr. Varghese for screening colonoscopy. I last performed colonoscopy on her 10 years ago, at which time she had diminutive tubular adenoma removed from the hepatic flexure and mild diverticular disease confined to the sigmoid colon with no other abnormalities. She denies any change in bowel habit. Denies abdominal pain, bright red blood per rectum or melena. PAST MEDICAL HISTORY: Significant for diagnosis of breast cancer, she reports low risk for recurrence that she underwent lumpectomy for, was at least estrogen positive and she is on antiestrogen therapy. She has a history of osteoporosis for which she takes calcium, vitamin D and Fosamax weekly with no other health problems being noted. FAMILY HISTORY: She is not aware of any family history for colon cancer or polyps. Father of complications of COPD at the age of 88. Mother of complications of diabetes and coronary artery disease at the age of 80. PAST SURGICAL HISTORY: She had lumpectomy of the breast about 18 months ago. She does report that she had a C1 fracture in a fall from a horse but it was managed conservatively with no neurological sequela. REVIEW OF SYSTEMS: CONSTITUTIONAL: Denies night sweats, chills, fever or change in weight. PULMONARY: Denies cough, wheezing or shortness of breath. CARDIOVASCULAR: Denies chest discomfort, dyspnea on exertion, orthopnea, PND or pedal edema. GASTROINTESTINAL: As noted in the HPI. PHYSICAL EXAMINATION: GENERAL: Reveals a pleasant white female, alert, articulate in no acute distress. VITAL SIGNS: Weight 134 pounds and blood pressure 104/60. HEENT: Unremarkable. Sclerae nonicteric. CHEST: Clear. CARDIOVASCULAR: Reveals regular rate and rhythm without murmur, S3, or S4. ABDOMEN: Soft and supple without mass, organomegaly, or tenderness. EXTREMITIES: Reveal no cyanosis, clubbing or edema. ASSESSMENT AND PLAN: The patient is being set up for screening colonoscopy. Prep instructions were given and questions were answered. I thank you for the referral of this pleasant lady. Job ID: [id number] DocumentID: [id number] Dictated Date: 12/21/2022 16:27:06 Coupon Clerk Date: 12/21/2022 16:47:00 Dictated By: HORACE EM MD
[~2023-01-06] VITALS: Ht 170 cm; Wt 60.0 kg
[~2023-01-06 09:20] MED LIST changes: +ALEN70TA85 PO; +CALC600T91 PO; +CHOL500050 PO; +LETR2.5T6 PO
[2023-01-06] MEDS ORDERED: LACTATED RINGERS 1,000 ML 1,000 ML IV STA (09:21)
--- NOTE | 2023-01-06 10:09 | Pre-Op Note & Conscious Sedat ---
Pre-Operative Progress Note Date H&P Reviewed: Jan 06, 2023 Time H&P Reviewed: 10:08 History & Physical: H&P Reviewed, Patient Examed, No changes noted Pre-Op Diagnosis: screening Moderate Sedation PreProcedure ASA Score 2 Airway Lungs Heart ASA score ASA 1: a normal healthy patient ASA 2: a patient with a mild systemic disease (mid diabetes, controlled hypertension, obesity ASA 3: a patient with a severe systemic disease that limits activity (angina, COPD, prior Myocardial infarction) ASA 4: a patient with an incapacitating disease that is a constant threat to life (CHF, renal failure) ASA 5: a moribund patient not expected to survive 24 hrs. (ruptured aneurysm) ASA 6: a declared brain- patient whose organs are being harvested. For emergent operations, add the letter E after the classification Mallampati Classification Grade 1 Sedation Plan Analgesia, Amnesia, Plan communicated to team members, Discussed options with patient/fam, Discussed risks with patient/fam The patient is an appropriate candidate to undergo the planned procedure, sedation, and anesthesia. The patient immediately re-assessed prior to indication. HORACE EM MD Jan 06, 2023 10:09
--- NOTE | 2023-01-06 10:28 | Anesthesia-General Post-Op ---
MAC Patient Condition Mental Status/LOC: Same as Preop Cardiovascular: Satisfactory Nausea/Vomiting: Absent Respiratory: Satisfactory Pain: Controlled Complications: Absent Post Op Complications Complications None Follow Up Care/Instructions Patient Instructions None needed. Anesthesiology Discharge Order Discharge Order Patient is doing well, no complaints, stable vital signs, no apparent adverse anesthesia problems. No complications reported per nursing. GABRIELA CHAMBERS CRNA Jan 06, 2023 10:28
[2023-01-06 10:30] VITALS: BP 129/79
[2023-01-06 11:35] VITALS: BP 115/62
--- NOTE | 2023-01-06 11:35 | Progress Note-Post Operative ---
Post-Procedure Note Physician (s)/[employer]man (s) Physician HORACE EM MD Pre-Procedure Diagnosis Pre-Procedure Diagnosis: screening Post-Procedure Diagnosis Post-operative diagnosis: Prior to undergoing colonoscopy digital rectal evaluation was performed. Anal sphincter tone was normal and the perianal reflexes intact. No abnormalities noted on digital inspection anal canal or distal rectal vault. The colonoscope was then inserted into the rectum and under direct visualization advanced to the cecum. The cecum was identified by an indication of the ileocecal valve and cecal strap. Photographic documentation was obtained careful inspection was made as the colonoscope withdrawn and the quality the prep was good. Findings there are no evidence for external hemorrhoids. 1 grade 1 internal hemorrhoid complex was noted. The rectum was unremarkable. Beginning in the mid sigmoid colon were scattered diverticulum that were present from the mid sigmoid colon to the distal transverse colon without evidence for diverticulitis. Present in the proximal transverse colon was a sessile 6 mm adenomatous appearing nonulcerated polyp was photographed and biopsied and ablated with no subsequent blood loss. The hepatic flexure ascending colon and cecum were unremarkable. A/P 1. One 6 mm sessile adenomatous appearing polyp was removed in the proximal transverse colon via hot forceps with no other areas of neoplasia being identified. Would advocate consideration for repeat screening colonoscopy in 10 years. 2. Mild diverticular disease involving the proximal sigmoid descending and transverse colon was present without evidence for diverticulitis. 3. 1 grade 1 internal hemorrhoid complex was noted. I thank you for the furl this pleasant lady sincerely Horace Em MD. CC: Dr. Lianne MUNGUIA MD. HORACE EM MD Jan 06, 2023 11:35
[2023-01-06 11:40] VITALS: BP 99/66
[2023-01-06 12:20] VITALS: BP 112/80
== END 2023-01-06 12:20 | disposition home or self-care (01) ==
LOC: ENDO 09:20
PROVIDERS: ATTEND Internal Medicine
DX: Z12.11 Encounter for screening for malignant neoplasm of colon (principal); D12.3 Benign neoplasm of transverse colon; K57.30 Diverticulosis of large intestine without perforation or abscess without bleeding; K64.0 First degree hemorrhoids; Z85.3 Personal history of malignant neoplasm of breast; M81.0 Age-related osteoporosis without current pathological fracture; Z79.899 Other long term (current) drug therapy; Z79.811 Long term (current) use of aromatase inhibitors
CPT/HCPCS: 88305